=== PATIENT | male | born 1935 | race Caucasian/White ===

== ENCOUNTER 2020-03-27 22:24 | Emergency (ER) | payer MEDICARE, BC ==
[2020-03-27 23:00] VITALS: BP 117/73; PULSE 76
--- NOTE | 2020-03-28 00:01 | EDM.PDOC ---
ED HPI GENERAL MEDICAL PROBLEM - General Chief Complaint: Drug or Alcohol Abuse Stated Complaint: fall after having had several drinks Time Seen by Provider: 03/27/20 23:20 Source of Information: Reports: EMS History Limitations: Reports: No Limitations - History of Present Illness INITIAL COMMENTS - FREE TEXT/NARRATIVE: Pt states he has had company much of the day and had not been eating very much today and tonight he had had at least 3 vodka mixes and fell. States he doesn't feel as if he had injured himself but his was scared and wanted him evaluated. Onset: Sudden Duration: Improving Location: Reports: Other (no injury or bodily complaints) Improves with: Reports: Rest Worsens with: Reports: None - Related Data Allergies Allergy/AdvReac Type Severity Reaction Status Date / Time No Known Allergies Allergy Verified 03/03/15 18:21 Home Meds: Home Meds Aspirin 325 mg PO DAILY 09/17/14 [History] Prazosin HCl [Prazosin] 2 mg PO Q12H 09/17/14 [History] Simvastatin [Zocor] 80 mg PO DAILY 09/17/14 [History] C/Sourcherry/Celery/Grape Seed [Tart Avitia] 1 each PO BID 03/03/15 [History] Ezetimibe [Zetia] 10 mg PO BEDTIME 03/03/15 [History] Multivitamin [Multivitamins] 1 cap PO DAILY 03/03/15 [History] Past Medical History HEENT History: Reports: Cataract, Hard of Hearing Gastrointestinal History: Reports: Chronic Constipation Hematologic History: Reports: None Oncologic (Cancer) History: Reports: Prostate - Infectious Disease History Infectious Disease History: Reports: Chicken Pox, Measles, Mumps - Past Surgical History Male Surgical History: Reports: Circumcision Other Male Surgeries/Procedures: Prostate Surgery Social & Family History - Family History Family Medical History: Noncontributory - Tobacco Use Smoking Status *Q: Former Smoker Used Tobacco, but Quit: Yes Month/Year Tobacco Last Used: 1080 - Caffeine Use Caffeine Use: Reports: Coffee - Alcohol Use Number of Drinks Per Day: 3 Date of Last Drink: 03/27/20 - Recreational Drug Use Recreational Drug Use: No ED ROS GENERAL - Review of Systems Review Of Systems: See Below Constitutional: Reports: No Symptoms. Denies: Fever, Malaise, Weakness, Diaphoresis HEENT: Reports: No Symptoms. Denies: Vertigo, Vision Change Respiratory: Reports: No Symptoms. Denies: Shortness of Breath, Pleuritic Chest Pain Cardiovascular: Reports: No Symptoms. Denies: Chest Pain, Blood Pressure Problem, Dyspnea on Exertion Endocrine: Reports: No Symptoms GI/Abdominal: Reports: Diarrhea (he recently has had diarrhea and has been seen by his pcp and stool cultures have been normal) : Reports: No Symptoms Musculoskeletal: Reports: No Symptoms Skin: Reports: No Symptoms Neurological: Denies: Confusion, Dizziness, Headache, Numbness, Paresthesia, Tremors, Trouble Speaking, Difficulty Walking, Weakness, Gait Disturbance Psychiatric: Reports: No Symptoms - Physical Exam Exam: See Below Exam Limited By: No Limitations General Appearance: Alert, WD/WN, No Apparent Distress Eye Exam: Bilateral Eye: Conjunctival Injection (suspect from alcohol intoxication) Ears: Normal External Exam Nose: Normal Inspection Throat/Mouth: Normal Inspection, Normal Lips, Normal Teeth, Normal Gums Head Exam: Atraumatic, Normocephalic Neck: Normal Inspection, Supple, Non-Tender, Full Range of Motion Respiratory/Chest: No Respiratory Distress, Lungs Clear, Normal Breath Sounds Cardiovascular: Normal Peripheral Pulses, Regular Rate, Rhythm, No Murmur GI/Abdominal: Normal Bowel Sounds, Soft, Non-Tender Neuro Exam (Abbreviated): Alert, Oriented, CN II-XII Intact, Normal Cognition, No Motor/Sensory Deficits. No: Confused, Disoriented, Slow to Respond, Unresponsive Course - Vital Signs Last Recorded V/S: Last Vital Signs Temp 97.2 F 03/27/20 22:59 Pulse 76 03/27/20 22:59 Resp 18 03/27/20 22:59 BP 117/73 03/27/20 22:59 Pulse Ox 94 L 03/27/20 22:59 - Re-Assessments/Exams Free Text/Narrative Re-Assessment/Exam: 03/28/20 00:06 Pt stated he did not need any xrays, nothing is hurting him and he is fully ambulatory. His is with him and wants to take him home. He states he feels fine and wants to leave. I found nothing physically wrong with him which would prevent him from being discharged. Departure - Departure Time of Disposition: 00:08 Disposition: Home, Self-Care 01 Condition: Good Clinical Impression: Alcohol abuse - Discharge Information *PRESCRIPTION DRUG MONITORING PROGRAM REVIEWED*: Not Applicable *COPY OF PRESCRIPTION DRUG MONITORING REPORT IN PATIENT VAMSHI: Not Applicable Instructions: Alcohol Use Disorder Referrals: PCP,None [Primary Care Provider] - Forms: ED Department Discharge Sepsis Event Note (ED) - Evaluation Sepsis Screening Result: No Definite Risk - Focused Exam Vital Signs: Vital Signs Temp Pulse Resp BP Pulse Ox 03/27/20 22:59 97.2 F 76 18 117/73 94 L
== END 2020-03-27 23:57 | disposition home or self-care (01) ==
LOC: LB.ED 22:24
DX: F10.10 Alcohol abuse, uncomplicated (principal); Z87.891 Personal history of nicotine dependence; Z79.82 Long term (current) use of aspirin
CPT/HCPCS: 99284; A0425; A0429

== ENCOUNTER 2021-12-03 13:26 | Emergency (ER) | payer MEDICARE, BC ==
[2021-12-03 16:27] VITALS: BP 155/89; PULSE 89
[2021-12-03] MEDS: Acetaminophen/Codeine 300-30 MG Tab PO ONE (16:32)
[2021-12-03] MEDS: Ondansetron 4 MG Tab.DIS PO ONE (16:32)
[2021-12-03] MEDS ORDERED: Ondansetron 4 MG Tab.DIS ONE (16:41)
[2021-12-03] MEDS ORDERED: Acetaminophen/Codeine 300-30 MG Tab ONE (16:42)
== END 2021-12-03 20:00 ==
LOC: LB.ED 13:26
DX: K35.30 Acute appendicitis with localized peritonitis, without perforation or gangrene (principal); Z79.82 Long term (current) use of aspirin; Z79.899 Other long term (current) drug therapy; Z20.822 Contact with and (suspected) exposure to COVID-19
CPT/HCPCS: 36415; 74176; 80053; 81001; 85025; 99285; A9270; Q0162; U0002; 99284

== ENCOUNTER 2024-03-15 15:55 | Emergency (ER) | payer MEDICARE, BC ==
[2024-03-15 17:53] VITALS: BP 128/66; PULSE 92
== END 2024-03-15 17:41 | disposition home or self-care (01) ==
LOC: LB.ED 15:55
DX: K59.00 Constipation, unspecified (principal); Z79.82 Long term (current) use of aspirin; Z79.899 Other long term (current) drug therapy
CPT/HCPCS: 74018; 99283